=== PATIENT | male | born 1955 | race Two or more races ===

== ENCOUNTER 2017-11-06 10:58 | Observation (INO) | payer MEDICAID ==
--- NOTE | 2017-11-06 11:51 | ER Document Report ---
ED Medical Screen (RME) - General Chief Complaint: Facial Droop Stated Complaint: TOOTH PAIN Time Seen by Provider: 11/06/17 11:27 Mode of Arrival: Ambulatory Information source: Patient Notes: Patient presents complaining of dental pain to the left upper jaw over the past 2 weeks. Patient states that he did have some pain up into the left side of his head as well. Patient took leftover antibiotics in attempt to treat his symptoms. Patient states that his dental infection is causing his face to twist up. Upon inspection patient with a right-sided facial drooping. Patient with good strength to bilateral upper and lower extremities. Patient states that he does have difficulty in finding his words as well as difficulty with speech enunciation for the past 2 weeks. TRAVEL OUTSIDE OF THE [place] IN LAST 30 DAYS: No - Related Data Allergies/Adverse Reactions: No Known Allergies Allergy (Verified 08/04/15 12:20) Past Medical History - Past Medical History Cardiac Medical History: Reports: Hx Heart Attack Endocrine Medical History: Reports: Hx Diabetes Mellitus Type 1 Past Surgical History: Reports: Hx Cardiac Catheterization - with stents, Hx Cardiac Surgery - 3 stents - Immunizations Hx Diphtheria, Pertussis, Tetanus Vaccination: Yes Physical Exam - Vital signs Vitals: Temp Pulse Resp BP Pulse Ox 98.4 F 88 20 173/100 H 95 11/06/17 11:04 11/06/17 11:04 11/06/17 11:04 11/06/17 11:04 11/06/17 11:04 - Neurological Cranial nerves: Facial palsy - Right-sided Course - Vital Signs Vital signs: Temp Pulse Resp BP Pulse Ox 98.4 F 88 20 173/100 H 95 11/06/17 11:04 11/06/17 11:04 11/06/17 11:04 11/06/17 11:04 11/06/17 11:04
[2017-11-06 12:19] LABS: INTERNATIONAL RATION (INR) 0.94
[2017-11-06 12:20] LABS: PARTIAL THROMBOPLASTIN TIME 28.1 SEC (23.5-35.8)
[2017-11-06 12:26] LABS: ABSOLUTE EOSINOPHILS # (AUTO) 0.3 10^3/uL (0.0-0.6); ABSOLUTE LYMPHOCYTES (AUTO) 2.7 10^3/uL (0.5-4.7); ABSOLUTE MONOCYTES (AUTO) 0.6 10^3/uL (0.1-1.4); ABSOLUTE NEUT (AUTO) 5.1 10^3/uL (1.7-8.2); BASOPHILS % (AUTO) 0.5 % (0-2); EOSINOPHILS % (AUTO) 3.5 % (0-6); HEMATOCRIT 45.5 % (37.9-51.0); MEAN CORPUSCULAR HEMOGLOBIN 27.9 pg (27.0-33.4); MEAN CORPUSCULAR HGB CONC 32.9 g/dL (32.0-36.0); MEAN CORPUSCULAR VOLUME 85 fl (80-97); MONOCYTES % (AUTO) 6.7 % (3-13); PLATELET COUNT 179 10^3/uL (150-450); RED BLOOD COUNT 5.36 10^6/uL (4.35-5.55); SEGMENTED NEUTROPHILS % (AUTO) 58.3 % (42-78); TOTAL CELLS COUNTED % (AUTO) 100 %; WHITE BLOOD COUNT 8.7 10^3/uL (4.0-10.5)
--- NOTE | 2017-11-06 12:28 | RADIOLOGY REPORT (SQ) ---
EXAM DESCRIPTION: CT HEAD WITHOUT COMPLETED DATE/TIME: 11/06/2017 12:18 pm REASON FOR STUDY: facial droop, diff with speech COMPARISON: None. TECHNIQUE: Axial images acquired through the brain without intravenous contrast. Images reviewed wi th bone, brain and subdural windows. Additional sagittal and coronal reconstructions were generated. Images stored on PACS. All CT scanners at this facility use dose modulation, iterative reconstruction, and/or weight based d osing when appropriate to reduce radiation dose to as low as reasonably achievable (ALARA). [facility]: Dose Right [facility]: CareDose [facility]: Dose Right [facility]: Teradose 4D [facility]: Smart Intellecap RADIATION DOSE: CT Rad equipment meets quality standard of care and radiation dose reduction techniq ues were employed. CTDIvol: 53.2 mGy. DLP: 991 mGy-cm. mGy. LIMITATIONS: None. FINDINGS: VENTRICLES: Normal size and contour. CEREBRUM: No masses. No hemorrhage. No midline shift. No evidence for acute infarction. Normal gra y/white matter differentiation. No areas of low density in the white matter. CEREBELLUM: No masses. No hemorrhage. No alteration of density. No evidence for acute infarction. EXTRAAXIAL SPACES: No fluid collections. No masses. ORBITS AND GLOBE: No intra- or extraconal masses. Normal contour of globe without masses. CALVARIUM: No fracture. PARANASAL SINUSES: No fluid or mucosal thickening. SOFT TISSUES: No mass or hematoma. OTHER: No other significant finding. IMPRESSION: NORMAL BRAIN CT WITHOUT CONTRAST. EVIDENCE OF ACUTE STROKE: NO. COMMENT: Quality ID # [id number]: Final reports with documentation of one or more dose reduction techniques (e.g., Automated exposure control, adjustment of the mA and/or kV according to patient size, use of iterative reconstruction technique) TECHNICAL DOCUMENTATION: JOB ID: [id number] [email or web address]- All Rights Reserved Reading location - IP/workstation name: [email or web address]
--- NOTE | 2017-11-06 12:37 | RADIOLOGY REPORT (SQ) ---
EXAM DESCRIPTION: CHEST SINGLE VIEW COMPLETED DATE/TIME: 11/06/2017 12:28 pm REASON FOR STUDY: facial droop, diff with speech COMPARISON: 08/04/2015 EXAM PARAMETERS: NUMBER OF VIEWS: One view. TECHNIQUE: Single frontal radiographic view of the chest acquired. RADIATION DOSE: NA LIMITATIONS: None. FINDINGS: LUNGS AND PLEURA: No opacities, masses or pneumothorax. No pleural effusion. MEDIASTINUM AND HILAR STRUCTURES: No masses. Contour normal. HEART AND VASCULAR STRUCTURES: Heart normal in size. Normal vasculature. BONES: No acute findings. HARDWARE: None in the chest. OTHER: No other significant finding. IMPRESSION: NO ACUTE RADIOGRAPHIC FINDING IN THE CHEST. TECHNICAL DOCUMENTATION: JOB ID: [id number] [email or web address]- All Rights Reserved Reading location - IP/workstation name: [email or web address]
[2017-11-06 12:40] LABS: ALANINE AMINOTRANSFERASE 31 U/L (21-72); ALKALINE PHOSPHATASE 104 U/L (38-126); ANION GAP 11 (5-19); ASPARTATE AMINO TRANSFERASE 44 U/L (17-59); BILIRUBIN,DIRECT 0.3 mg/dL (0.0-0.4); BILIRUBIN,TOTAL 0.5 mg/dL (0.2-1.3); BLOOD UREA NITROGEN 23 mg/dL (7-20); CALCIUM 9.5 mg/dL (8.4-10.2); CARBON DIOXIDE 27 mmol/L (22-30); CHLORIDE 109 mmol/L (98-107); CREATINE KINASE 1039 U/L (55-170); GLUCOSE 85 mg/dL (75-110); POTASSIUM 4.5 mmol/L (3.6-5.0); SODIUM 147.4 mmol/L (137-145); TOTAL PROTEIN 7.6 g/dL (6.3-8.2)
[2017-11-06 12:53] LABS: CREATINE KINASE MB 5.62 ng/mL (<4.55); TROPONIN I 0.021 ng/mL
[2017-11-06] MEDS ORDERED: BUPIVACAINE HCL 0.5 % INJ/PF 30 ML SDV INJ ONE (13:37)
--- NOTE | 2017-11-06 13:43 | EKG REPORT ---
SEVERITY:- BORDERLINE ECG - SINUS RHYTHM CONSIDER INFERIOR INFARCT : Confirmed by: Leandro Bui MD 06-Nov-2017 13:42:01
--- NOTE | 2017-11-06 14:18 | ER Document Report ---
ED General - General Chief Complaint: Facial Droop Stated Complaint: TOOTH PAIN Time Seen by Provider: 11/06/17 11:27 Mode of Arrival: Ambulatory Information source: Patient Notes: 62-year-old male presents with complaints of right facial droop left leg weakness chest pain and dental pain. Patient notes facial droop and dental pain that been ongoing now for a month. He notes the chest pain is on-and-off and happened approximately 1 hour prior to arrival. Patient is from [place], does not have a PCP here TRAVEL OUTSIDE OF THE U[place] IN LAST 30 DAYS: No - HPI Onset: Other Onset/Duration: Intermittent, Gone Quality of pain: Sharp - Patient has sharp dental pain but no chest pain at this time Severity: Mild Pain Level: 1 Associated symptoms: Chest pain, Other Exacerbated by: Denies Relieved by: Denies Similar symptoms previously: Yes Recently seen / treated by doctor: Yes - Related Data Allergies/Adverse Reactions: No Known Allergies Allergy (Verified 08/04/15 12:20) Past Medical History - General Information source: Patient - Social History Smoking Status: Current Every Day Smoker Cigarette use (# per day): Yes Chew tobacco use (# tins/day): No Smoking Education Provided: No Frequency of alcohol use: None Drug Abuse: None Family History: CAD Patient has suicidal ideation: No Patient has homicidal ideation: No - Past Medical History Cardiac Medical History: Reports: Hx Heart Attack, Hx Hypertension Endocrine Medical History: Reports: Hx Diabetes Mellitus Type 1 Renal/ Medical History: Denies: Hx Peritoneal Dialysis Past Surgical History: Reports: Hx Cardiac Catheterization - with stents, Hx Cardiac Surgery - 3 stents - Immunizations Hx Diphtheria, Pertussis, Tetanus Vaccination: Yes Review of Systems - Review of Systems Notes: REVIEW OF SYSTEMS: CONSTITUTIONAL : Denies fever, chills, or sweats. Denies recent illness. EENT: Admits to dental pain CARDIOVASCULAR: Admits to chest pain RESPIRATORY: Denies cough, cold, or chest congestion. Denies shortness of breath, difficulty breathing, or wheezing. GASTROINTESTINAL: Denies abdominal pain or distention. Denies nausea, vomiting , or diarrhea. Denies blood in vomitus, stools, or per rectum. Denies black, tarry stools. Denies constipation. GENITOURINARY: Denies difficulty urinating, painful urination, burning, frequency, blood in urine, or discharge. MUSCULOSKELETAL: Denies back or neck pain or stiffness. Denies joint pain or swelling. SKIN: Denies rash, lesions or sores. HEMATOLOGIC : Denies easy bruising or bleeding. LYMPHATIC: Denies swollen, enlarged glands. NEUROLOGICAL: Admits to right facial droop PSYCHIATRIC: Denies anxiety or stress. Denies depression, suicidal ideation, or homicidal ideation. ALL OTHER SYSTEMS REVIEWED AND NEGATIVE. Dictation was performed using [employer] voice recognition software PHYSICAL EXAMINATION: GENERAL: Well-appearing, well-nourished and in no acute distress. HEAD: Atraumatic, normocephalic. EYES: Pupils equal round and reactive to light, extraocular movements intact, sclera anicteric, conjunctiva are normal. ENT: Nares patent, oropharynx clear without exudates. Moist mucous membranes. Left tooth number 12 is noted to be loose and tender NECK: Normal range of motion, supple without lymphadenopathy LUNGS: Breath sounds clear to auscultation bilaterally and equal. No wheezes rales or rhonchi. HEART: Regular rate and rhythm without murmurs ABDOMEN: Soft, nontender, nondistended abdomen. No guarding, no rebound. No masses appreciated. Musculoskeletal: Normal range of motion, no pitting or edema. No cyanosis. NEUROLOGICAL: Cranial nerves grossly intact. Right facial droop noted left heel to santoro was noted to be an appropriate, concern for cerebellar dysfunction PSYCH: Normal mood, normal affect. SKIN: Warm, Dry, normal turgor, no rashes or lesions noted. Physical Exam - Vital signs Vitals: Temp Pulse Resp BP Pulse Ox 98.4 F 88 20 173/100 H 95 11/06/17 11:04 11/06/17 11:04 11/06/17 11:04 11/06/17 11:04 11/06/17 11:04 Course - Re-evaluation Re-evalutation: 11/06/17 15:[address] head negative no acute abnormality, my concern is that the patient had a CVA and his ck ckmb were elvated but trop was negative. Dental block was performed with complete resolution of patient's pain on the left - Vital Signs Vital signs: Temp Pulse Resp BP Pulse Ox 98.4 F 64 13 162/91 H 95 11/06/17 11:04 11/06/17 12:00 11/06/17 14:01 11/06/17 14:01 11/06/17 14:01 - Laboratory Result Diagrams: 11/06/17 12:09 11/06/17 12:09 Laboratory results interpreted by me: 11/06/17 11/06/17 11/06/17 12:09 12:09 12:09 RDW 15.0 H Sodium 147.4 H Chloride 109 H BUN 23 H Creatinine 1.48 H Est GFR ( Amer) 58 L Est GFR (Non-Af Amer) 48 L Creatine Kinase 1039 H CK-MB (CK-2) 5.62 H - Diagnostic Test Radiology reviewed: Image reviewed - CT head without contrast negative, Reports reviewed Procedures - Additional Procedures dental block Time performed: 15:00 - using 10cc of lido without ep compelte nerve block of the inferior orbital left Discharge - Discharge Clinical Impression: Facial droop, Pain, dental Chest pain Qualifiers: Chest pain type: unspecified Qualified Code(s): R07.9 - Chest pain, unspecified Condition: Stable Disposition: ADMITTED OBSERVATION Admitting Provider: Hospitalist Unit Admitted: Telemetry
[2017-11-06] MEDS ORDERED: OXYCODONE-ACETAMINOPHEN 5-325 MG TABLET PO PRN (14:54)
[2017-11-06] MEDS ORDERED: DEXTROSE 50%-WATER 25 GM/50 ML DISP.SYRIN IV PRN ×4 (14:54→15:13)
[2017-11-06] MEDS ORDERED: ONDANSETRON 4 MG TAB.RAPDIS PO PRN (14:54)
[2017-11-06] MEDS ORDERED: GLUCAGON,HUMAN RECOMB 1 MG INJ SUBCUT PRN (14:54)
[2017-11-06] MEDS ORDERED: DEXTROSE 40% GEL 15 GM TUBE PO PRN ×4 (14:54→15:13)
[2017-11-06] MEDS ORDERED: GLUCAGON,HUMAN RECOMB 1 MG INJ IM PRN (15:13)
[2017-11-06] MEDS: NORMAL SALINE 1000 ML 1,000 ML IV PRN ×2 (15:23→19:26)
--- NOTE | 2017-11-06 15:38 | PDOC H&P ---
History of Present Illness Admission Date/PCP: 11/06/17 14:23 NO LOCALMD Patient complains of: Facial pain History of Present Illness: The patient is a very pleasant 62-year-old gentleman who spends 3 months out of the year in the [place] area visiting his son. He resides in [place] and is followed closely by his primary care physician and [employer] at [employer]. His past medical history is significant for coronary artery disease status post stent placements in the past. He has insulin requiring diabetes mellitus as well as hypertension and hyperlipidemia. Unfortunately the patient continues to smoke. The patient is down in [place] visiting his son. He states that he has been worsening over the past month. Approximately 1 month ago the patient started developing shaking tremors. At about the same time he started developing what he thought was a toothache. He has pain in the left side of his face. This initially was in the jaw but over the past month is worsened and now radiates up into his head and his eye and down into his throat. About 2 weeks ago the patient developed left-sided facial droop. He was unable to make his jaw work properly and he has had a difficult time chewing any food. He is not eating much because it is so difficult to eat or open his mouth. He then began to develop some left-sided blurry vision as well. Also for the past couple of weeks he has had issues with worsening chest pain. He states he will have episodes of chest pain usually when he is walking around that are quite brief. They do resolve with rest. He has had no increased shortness of breath. No diaphoresis. No nausea or vomiting. He states that he just has not been paying much attention to it up until the past couple of days when it seems to have worsened. Today the pain in his jaw became quite severe and he decided to present to the emergency room for further evaluation and treatment. Workup in the hospital has been fairly unrevealing. He had a CT of the brain which was unremarkable. Chest x-ray was normal. He does not have a white count or fever. He does have an elevated creatinine above his baseline from when he was here in the emergency room in 2016. He has mild hypernatremia as well. Past Medical History Cardiac Medical History: Reports: Myocardial Infarction, Hypertension Pulmonary Medical History: Reports: None EENT Medical History: Reports: None Neurological Medical History: Reports: None, Other - Although recently he has developed shaking tremor. This seems to be worsen Denies: Seizures Endocrine Medical History: Reports: Diabetes Mellitus Type 1 Renal/ Medical History: Reports: None Malignancy Medical History: Reports: None GI Medical History: Reports: None Musculoskeltal Medical History: Reports: None Skin Medical History: Reports: None Psychiatric Medical History: Reports: Depression, Tobacco Dependency Denies: Alcohol Dependency, Substance Abuse Traumatic Medical History: Reports: None Hematology: Reports: None Infectious Medical History: Reports: None Past Surgical History Past Surgical History: Reports: Cardiac Catheterization - with stents Social History Information Source: Patient Lives with: Family - The patient lives with his son right now in [facility]. In [place] he shares an apartment with his mother. Smoking Status: Current Every Day Smoker Cigarettes Packs Per Day: 1 - He states he smokes 1 pack of cigarettes a week Frequency of Alcohol Use: Social Last Alcohol Use: 11/03/17 Hx Recreational Drug Use: Yes Drugs: Marijuana Hx Prescription Drug Abuse: No Family History Family History: CAD Parental Family History Reviewed: Yes Children Family History Reviewed: Yes Sibling(s) Family History Reviewed.: Yes Medication/Allergy Home Medications: Aspirin [Aspirin EC] 81 mg PO DAILY 11/06/17 Enalapril Maleate [Vasotec 5 mg Tablet] 5 mg PO DAILY 11/06/17 Hum Insulin NPH/Reg Insulin Hm [Novolin 70-30 100 Unit/ml Vial] 25 units SQ DAILY 11/06/17 Insulin Glargine,Hum.rec.anlog [Lantus Insulin 100 Unit/1 ml 10 ml] 30 units SQ QHS 11/06/17 Metoprolol Tartrate [Lopressor 50 mg Tablet] 50 mg PO Q12 11/06/17 Prasugrel HCl [Effient 10 mg Tablet] 10 mg PO DAILY 11/06/17 Rosuvastatin Calcium [Crestor 20 mg Tablet] 20 mg PO QHS 11/06/17 Allergies/Adverse Reactions: No Known Allergies Allergy (Verified 08/04/15 12:20) Review of Systems Constitutional: PRESENT: fatigue, other - He is developed a significant tremor over the past month Eyes: PRESENT: visual disturbances - Blurry vision in his left eye Ears: ABSENT: hearing changes Nose, Mouth, and Throat: PRESENT: headache(s), other - The patient has significant jaw pain. He believes it is coming from a tooth. It radiates up into his thigh and left side of his temporal area. It also radiates down into his jaw and neck. Cardiovascular: PRESENT: chest pain - That is relieved with rest.. ABSENT: dyspnea on exertion, edema, orthropnea, palpitations Respiratory: ABSENT: cough, hemoptysis Gastrointestinal: ABSENT: abdominal pain, constipation, diarrhea, hematemesis, hematochezia, nausea, vomiting Genitourinary: ABSENT: dysuria, hematuria Musculoskeletal: PRESENT: other - The patient states he has been falling frequently over the past week Integumentary: ABSENT: rash, wounds Neurological: PRESENT: focal weakness - Mild left hemiparesis, frequent falls, lack of coordination, tremor(s), weakness, other - He has blurred vision in his left eye.. ABSENT: syncope Psychiatric: PRESENT: anxiety. ABSENT: depression, hallucinations, homidical ideation, suicidal ideation Endocrine: ABSENT: cold intolerance, heat intolerance, polydipsia, polyuria Hematologic/Lymphatic: ABSENT: easy bleeding, easy bruising Physical Exam Vital Signs: Temp Pulse Resp BP Pulse Ox 98.4 F 64 13 162/91 H 95 11/06/17 11:04 11/06/17 12:00 11/06/17 14:01 11/06/17 14:01 11/06/17 14:01 General appearance: PRESENT: no acute distress, well-developed, well-nourished, other - The patient is somewhat anxious. Head exam: PRESENT: other - The patient was significant left-sided facial droop. Eye exam: ABSENT: EOMI - The patient cannot complete his exam due to pain in his left eye. He seems to have difficulty with the left eye looking to the right laterally, PERRLA - Left pupil does not react to light. Ear exam: PRESENT: normal external ear exam Mouth exam: PRESENT: moist, tongue midline Neck exam: ABSENT: carotid bruit, JVD, lymphadenopathy, thyromegaly Respiratory exam: PRESENT: clear to auscultation zohra, decreased breath sounds - He is diminished in the lower bases bilaterally. ABSENT: rales, rhonchi, wheezes Cardiovascular exam: PRESENT: RRR. ABSENT: diastolic murmur, rubs, systolic murmur Pulses: PRESENT: normal dorsalis pedis pul Vascular exam: PRESENT: normal capillary refill GI/Abdominal exam: PRESENT: normal bowel sounds, soft. ABSENT: distended, guarding, mass, organolmegaly, rebound, tenderness Rectal exam: PRESENT: deferred Extremities exam: PRESENT: full ROM. ABSENT: calf tenderness, clubbing, pedal edema Neurological exam: PRESENT: alert, awake, oriented to person, oriented to time, oriented to situation, other - Mild left hemiparesis. The patient also has shaking spells in all 4 of his extremities. This appears to be a fairly strong tremor that waxes and wanes. ABSENT: CN II-XII grossly intact - The patient's left eye will not track to the right laterally. Left pupil is not reactive to light. Sensation is decreased on the left side of the face at all levels. Psychiatric exam: PRESENT: anxious Skin exam: PRESENT: dry, intact, warm. ABSENT: cyanosis, rash Results Impressions: Chest X-Ray 11/06/17 11:49 IMPRESSION: NO ACUTE RADIOGRAPHIC FINDING IN THE CHEST. Head CT 11/06/17 11:49 IMPRESSION: NORMAL BRAIN CT WITHOUT CONTRAST. EVIDENCE OF ACUTE STROKE: NO. Assessment & Plan - Diagnosis (1) Facial pain Is this a current diagnosis for this admission?: Yes Plan: There is been seen diabetes mellitus the patient has facial pain with neurologic deficits. This would seem most consistent with an acute CVA the patient felt like he had an abscessed tooth however I am not seeing any evidence of infection. The patient was given bupivacaine injection by the ER physician and currently his pain is stable. I do not believe at this point he needs any antibiotic therapy. We are going to obtain an MRI of the brain for further evaluation. I did speak to the radiologist. If we feel like after we get this test that he may have an underlying abscess we could consider a contrasted CT of the head and neck. We will hold off on that for now. (2) Chest pain Is this a current diagnosis for this admission?: Yes Plan: The patient does have significant history of cardiac issues. He will continue his home regimen of medications. We will trend his serial troponins overnight and tentatively schedule a stress test in the morning. (3) Left hemiparesis Is this a current diagnosis for this admission?: Yes Plan: The patient has mild left hemiparesis as well as left-sided facial droop. He also has some blurriness to his vision on the left as well as some eye pain when he moves his eye muscles. This would be most consistent with a CVA. However I cannot rule out another process such as a mass lesion or significant abscess. We are going to get an MRI of the brain. He is already on a statin medication and aspirin. I will increase his daily aspirin to 325 mg for now. I also am going to increase his statin medication dose as well. I am going to get physical therapy, occupational therapy and speech therapy to evaluate the patient. (4) Acute renal failure Is this a current diagnosis for this admission?: Yes Plan: The patient states that he has not been able to use his jaw and he can no longer chew food. He has not been eating or drinking well. I believe the patient's acute renal failure is likely due to dehydration. I am going to place the patient on normal saline overnight. He will have a repeat chemistry panel drawn in the morning. (5) Coronary artery disease Is this a current diagnosis for this admission?: Yes Plan: He will continue his home regimen. I am going to increase his aspirin for now. (6) Diabetes mellitus Is this a current diagnosis for this admission?: Yes Plan: He will continue his home dose of Lantus. He also takes 7030 twice daily. I will hold this for now and simply cover the patient with sliding scale Humalog. I will obtain his hemoglobin A1c in the morning for risk stratification (7) Hypertension Is this a current diagnosis for this admission?: Yes Plan: Stable. He will continue his home regimen (8) Hyperlipidemia Is this a current diagnosis for this admission?: Yes Plan: Continue his statin medication. (9) Hypernatremia Is this a current diagnosis for this admission?: Yes Plan: Possibly due to dehydration. We will hydrate the patient overnight. (10) Tobacco dependence Is this a current diagnosis for this admission?: Yes Plan: We will place a nicotine patch on the patient. (11) Ambulatory dysfunction Is this a current diagnosis for this admission?: Yes Plan: The patient has had several falls over the past week or 2. We will get physical therapy to evaluate the patient. (12) Full code status Is this a current diagnosis for this admission?: Yes - Time Time Spent: 50 to 70 Minutes - Inpatient Certification Medical Necessity: Need For IV Fluids, Need for Neurological Checks - The patient will be placed in observation in the hospital. Hopefully his workup will be negative and he can be discharged home tomorrow. This can be revisited based on test results. At this point I expect his hospitalization to span less than 2 midnights., Other
[2017-11-06 16:06] LABS: INTERNATIONAL RATION (INR) 0.95; PROTHROMBIN TIME 13.2 SEC (11.4-15.4)
[2017-11-06 16:07] LABS: PARTIAL THROMBOPLASTIN TIME 30.3 SEC (23.5-35.8)
[2017-11-06 18:54] LABS: CREATINE KINASE MB 4.52 ng/mL (<4.55); TROPONIN I 0.023 ng/mL
[2017-11-06] MEDS: NICOTINE 21 MG/24 HR PATCH.TD24 TD SCH (19:19)
[2017-11-06] MEDS: MORPHINE SULFATE 10 MG/ML INJ IV PRN (19:22)
[2017-11-06] MEDS: ATORVASTATIN CALCIUM 40 MG TABLET PO SCH (21:31)
[2017-11-06] MEDS: METOPROLOL TARTRATE 50 MG TABLET PO SCH (21:31)
[2017-11-06] MEDS: OXYCODONE-ACETAMINOPHEN 5-325 MG TABLET PO PRN (21:32)
[2017-11-06] MEDS ORDERED: (PENDING PHARMACY ID) (Rosuvastatin Calcium [Crestor 20 Mg Tablet] 20 MG) PO SCH (22:00)
[2017-11-06] MEDS ORDERED: INSULIN GLARGINE,HUM.REC.ANLOG 1,000 UNIT/10 ML UNIT SUBCUT SCH (22:00)
[2017-11-06] MEDS ORDERED: ATORVASTATIN CALCIUM 40 MG TABLET PO SCH (22:00)
[2017-11-06 22:18] LABS: URINE AMPHETAMINES SCREEN NEGATIVE; URINE BARBITURATES SCREEN NEGATIVE; URINE BENZODIAZEPINES SCREEN NEGATIVE; URINE COCAINE SCREEN NEGATIVE; URINE METHADONE SCREEN NEGATIVE; URINE PHENCYCLIDINE SCREEN NEGATIVE
[2017-11-06 22:25] LABS: URINE MARIJUANA (THC) SCREEN UNCONFIRMED POSITIVE
[2017-11-07] MEDS: NORMAL SALINE 1000 ML 1,000 ML IV PRN (03:59)
[2017-11-07] MEDS: LANSOPRAZOLE 30 MG TAB.RAP.DR PO SCH (05:14)
[2017-11-07 06:26] LABS: ABSOLUTE BASOPHILS # (AUTO) 0.1 10^3/uL (0.0-0.2); ABSOLUTE EOSINOPHILS # (AUTO) 0.3 10^3/uL (0.0-0.6); ABSOLUTE LYMPHOCYTES (AUTO) 2.1 10^3/uL (0.5-4.7); ABSOLUTE MONOCYTES (AUTO) 0.5 10^3/uL (0.1-1.4); ABSOLUTE NEUT (AUTO) 4.7 10^3/uL (1.7-8.2); BASOPHILS % (AUTO) 0.7 % (0-2); EOSINOPHILS % (AUTO) 4.3 % (0-6); HEMATOCRIT 41.9 % (37.9-51.0); HEMOGLOBIN 13.8 g/dL (13.5-17.0); LYMPHOCYTES % (AUTO) 27.1 % (13-45); MEAN CORPUSCULAR HEMOGLOBIN 27.8 pg (27.0-33.4); MEAN CORPUSCULAR HGB CONC 32.9 g/dL (32.0-36.0); MEAN CORPUSCULAR VOLUME 85 fl (80-97); MONOCYTES % (AUTO) 6.4 % (3-13); PLATELET COUNT 153 10^3/uL (150-450); RED BLOOD COUNT 4.95 10^6/uL (4.35-5.55); RED CELL DISTRIBUTION WIDTH 15.4 % (11.5-14.0); SEGMENTED NEUTROPHILS % (AUTO) 61.5 % (42-78); TOTAL CELLS COUNTED % (AUTO) 100 %; WHITE BLOOD COUNT 7.6 10^3/uL (4.0-10.5)
[2017-11-07 06:45] LABS: ALANINE AMINOTRANSFERASE 31 U/L (21-72); ALKALINE PHOSPHATASE 84 U/L (38-126); ANION GAP 6 (5-19); ASPARTATE AMINO TRANSFERASE 34 U/L (17-59); BILIRUBIN,DIRECT 0.2 mg/dL (0.0-0.4); BILIRUBIN,TOTAL 0.5 mg/dL (0.2-1.3); BLOOD UREA NITROGEN 18 mg/dL (7-20); CALCIUM 8.3 mg/dL (8.4-10.2); CARBON DIOXIDE 24 mmol/L (22-30); CHLORIDE 110 mmol/L (98-107); CHOLESTEROL 139.07 mg/dL (0-200); CREATINE KINASE 793 U/L (55-170); GLUCOSE 167 mg/dL (75-110); PHOSPHORUS 2.3 mg/dL (2.5-4.5); POTASSIUM 4.1 mmol/L (3.6-5.0); SODIUM 140.1 mmol/L (137-145); TOTAL PROTEIN 5.9 g/dL (6.3-8.2); TRIGLYCERIDES 203 mg/dL (<150)
[2017-11-07 06:56] LABS: DIRECT LDL 70 mg/dL (<100)
[2017-11-07 07:00] LABS: CREATINE KINASE MB 4.11 ng/mL (<4.55); TROPONIN I 0.023 ng/mL
[2017-11-07 07:04] LABS: VLDL CHOLESTEROL 40.6 mg/dL (10-31)
--- NOTE | 2017-11-07 07:34 | EKG REPORT ---
SEVERITY:- ABNORMAL ECG - SINUS RHYTHM INFERIOR INFARCT, AGE INDETERMINATE : Confirmed by: Leandro Bui MD 07-Nov-2017 07:33:52
[2017-11-07] MEDS: OXYCODONE-ACETAMINOPHEN 5-325 MG TABLET PO PRN ×2 (08:42→21:16)
[2017-11-07] MEDS: INSULIN LISPRO 100 UNIT/ML 3 ML VIAL SUBCUT PRN ×3 (08:43→21:11)
[2017-11-07] MEDS ORDERED: ASPIRIN 81 MG TABLET, ENT COATED PO SCH (10:00)
[2017-11-07] MEDS: ASPIRIN 325 MG TABLET PO SCH (11:47)
[2017-11-07] MEDS: ENOXAPARIN SODIUM INJ 40 MG/0.4 ML DISP.SYRIN SUBCUT SCH (11:47)
[2017-11-07] MEDS: ENALAPRIL MALEATE 5 MG TABLET PO SCH (11:48)
[2017-11-07] MEDS: PRASUGREL HCL 10 MG TABLET PO SCH (11:48)
[2017-11-07] MEDS: METOPROLOL TARTRATE 50 MG TABLET PO SCH ×2 (11:51→21:12)
[2017-11-07] MEDS: DOCUSATE SODIUM 100 MG CAPSULE PO SCH (11:54)
[2017-11-07] MEDS ORDERED: REGADENOSON INJ 0.4 MG/5 ML DISP.SYRIN IV ONE (12:00)
[2017-11-07] MEDS: MORPHINE SULFATE 10 MG/ML INJ IV PRN (13:42)
--- NOTE | 2017-11-07 14:18 | DRAGON STRESS TEST REPORT ---
INTRAVENOUS LEXISCAN CARDIOLITE STRESS TEST USING SINGLE PHOTON EMMISION COMPUTERIZED TOMOGRAPHIC. DATE OF PROCEDURE: November 07, 2017, INDICATION : Chest pain CARDIAC RISK FACTORS: Diabetes, hypertension, dyslipidemia, tobacco abuse, CAD RESTING EKG: Sinus rhythm, abnormal Q waves noted inferiorly. No baseline ST T- wave changes noted STRESS EKG: No significant ST segment changes noted with LexiScan bolus REASON FOR TERMINATION: Protocol. PROCEDURE REPORT: Baseline heart rate 56 beats per minute with blood pressure of 162/89. Patient had no significant complaints. Patient was bolused with Lexiscan 0.4 mg intravenously followed by saline bolus. Heart rate at 2 minutes post bolus 111 with a blood pressure of 126/73. 3 minutes post bolus heart rate 92 with blood pressure of 184/86. No significant EKG changes were noted. Patient had no significant complaints during the procedure or postprocedure. Patient injected with Aminophyllin 75 mg at 3 minutes or later after Lexiscan bolus. CONCLUSIONS: Normal EKG and hemodynamic response to IV LexiScan. NUCLEAR DATA: At rest the patient was given 12.60 millicuries of technetium 99 sestamibi injected intravenously. As per protocol rest gated SPECT images were obtained. On day of stress test, the patient was given intravenous LexiScan at a dose of 0.4 mg in 5 mL intravenously, followed by flush with normal saline. Subsequently the stress dose of 37.6 millicuries of technetium 99 sestamibi was injected intravenously. As per protocol stress gated images were obtained. NUCLEAR INTERPRETATION: Both raw and processed data were used for interpretation. Visual, qualitative, computer-generated quantitative data was used. There was good myocardial uptake of technetium compound. Motion artifact and soft tissue attenuations were noted. Increased visceral uptake was noted. No definitive areas of transient perfusion defect noted, No definitive areas of fixed perfusion defect or scars noted. Borderline decreased uptake noted in the stress imaging in the distal inferolateral wall with SDS of 1 therefore felt to be not significant. EKG gated imaging showed LV EF at 40 %, rest and stress gated EF similar visually. T. I D. ratio was 1.14. Lung heart ratio noted to be within normal limits 0.40. No significant extracardiac and abnormal radiotracer activities were noted. RV free wall uptake was noted to be WNL. IMPRESSION: Also refer to comments under nuclear interpretation. Also test results needs to be interpreted in the context of pretest probability. 1. No definitive areas of transient perfusion defect noted. 2. There is no definitive scintigraphic evidence of myocardial infarction/scar. 3. EKG gated imaging shows left ventricular ejection fraction of approx. 40 %. 4. Clinical correlation requested as occasionally single vessel disease or balanced ischemia could be missed. In approximately 10% of the cases Lexiscan may not cause adequate vasodilatory stress. RECOMMENDATIONS: Aggressive risk factor modification and medical management. Further evaluation may be needed if continued symptoms or other high risk indicators are noted on clinical evaluation. Close cardiology follow-up is also recommended. Clinical correlation with echocardiogram derived ejection fraction. Inability to exercise by itself can lead to increased cardiovascular event risks. Consider cardiology consultation and or follow-up if clinically indicated. I am available for cardiology evaluation and consultation if requested by the small engine specialist, unless patient already has a cardiac tech. MELISSA
[2017-11-07] MEDS: NICOTINE 21 MG/24 HR PATCH.TD24 TD SCH (17:55)
--- NOTE | 2017-11-07 19:39 | PDOC PROGRESS REPORT ---
Subjective Progress Note for:: 11/07/17 Subjective:: Doing better. Still with good facial numbness. Denies chest pain, no shortness of breath or palpitations. Denies abdominal pain, nausea or vomiting. Reason For Visit: FACIAL PAIN WITH NEUROLOGIC DEFICITS Physical Exam Vital Signs: Temp Pulse Resp BP Pulse Ox 97.6 F 62 16 163/86 H 99 11/07/17 12:01 11/07/17 14:00 11/07/17 12:01 11/07/17 12:01 11/07/17 12:01 Intake & Output 11/06/17 11/07/17 11/08/17 06:59 06:59 06:59 Intake Total 1522 Output Total 300 Balance 1222 Weight 82.1 kg GEN: NAD, well-developed, well-nourished CV: RRR, NL S1S2 LUNGS: CTA bilaterally ABDOMEN Soft, NT, +BS EXTERMITIES: No e/c/c NEURO: Alert, oriented 3, mild left sided weakness Results Laboratory Results: 11/07/17 06:10 11/07/17 06:10 11/07/17 11/07/17 11/07/17 06:10 06:10 06:10 WBC 7.6 RBC 4.95 Hgb 13.8 Hct 41.9 MCV 85 MCH 27.8 MCHC 32.9 RDW 15.4 H Plt Count 153 Seg Neutrophils % 61.5 Lymphocytes % 27.1 Monocytes % 6.4 Eosinophils % 4.3 Basophils % 0.7 Absolute Neutrophils 4.7 Absolute Lymphocytes 2.1 Absolute Monocytes 0.5 Absolute Eosinophils 0.3 Absolute Basophils 0.1 Sodium 140.1 Potassium 4.1 Chloride 110 H Carbon Dioxide 24 Anion Gap 6 BUN 18 Creatinine 1.22 Est GFR ( Amer) > 60 Est GFR (Non-Af Amer) > 60 Glucose 167 H Calcium 8.3 L Phosphorus 2.3 L Magnesium 1.7 Total Bilirubin 0.5 AST 34 ALT 31 Alkaline Phosphatase 84 Total Protein 5.9 L Albumin 3.0 L Triglycerides 203 H Cholesterol 139.07 LDL Cholesterol Direct 70 VLDL Cholesterol 40.6 H HDL Cholesterol 32 L TSH 1.79 11/06/17 11/06/17 11/07/17 18:20 18:20 06:10 Creatine Kinase 896 H CK-MB (CK-2) 4.52 4.11 Troponin I 0.023 0.023 11/07/17 06:10 Creatine Kinase 793 H CK-MB (CK-2) Troponin I Impressions: Chest X-Ray 11/06/17 11:49 IMPRESSION: NO ACUTE RADIOGRAPHIC FINDING IN THE CHEST. Head CT 11/06/17 11:49 IMPRESSION: NORMAL BRAIN CT WITHOUT CONTRAST. EVIDENCE OF ACUTE STROKE: NO. Assessment & Plan - Plan Summary Plan Summary: (1) Facial pain Is this a current diagnosis for this admission?: Yes Plan: Doing better. We are going to obtain an MRI of the brain for further evaluation. Apparently per radiologist, if we feel like after we get this test that he may have an underlying abscess we could consider a contrasted CT of the head and neck. We will continue to hold off on that for now. (2) Chest pain Is this a current diagnosis for this admission?: Yes Plan: The patient does have significant history of cardiac issues. He will continue his home regimen of medications. He has ruled out for GA and stress Cardiolite to the unremarkable for GA. (3) Left hemiparesis Is this a current diagnosis for this admission?: Yes Plan: The patient has mild left hemiparesis as well as left-sided facial droop. We are getting an MRI of the brain. He is already on a statin medication. Physical therapy, occupational therapy and speech therapy as already ordered. (4) Acute renal failure Is this a current diagnosis for this admission?: Yes Plan: The patient states that he has not been able to use his jaw and he can no longer chew food. He has not been eating or drinking well. I agree that the patient's acute renal failure is likely due to dehydration. This is improving. He will have a repeat chemistry panel drawn in the morning. (5) Coronary artery disease Is this a current diagnosis for this admission?: Yes Plan: He will continue his home regimen. (6) Diabetes mellitus Is this a current diagnosis for this admission?: Yes Plan: He will continue his home dose of Lantus. He also takes 70/30 twice daily. We are holding this for now and simply cover the patient with sliding scale Humalog. Check hemoglobin A1c in the morning for risk stratification (7) Hypertension Is this a current diagnosis for this admission?: Yes Plan: Stable. He will continue his home regimen (8) Hyperlipidemia Is this a current diagnosis for this admission?: Yes Plan: Continue his statin medication. (9) Hypernatremia Is this a current diagnosis for this admission?: Yes Plan: Possibly due to dehydration. Improved. Follow-up Chem-7 in a.m. (10) Tobacco dependence Is this a current diagnosis for this admission?: Yes Plan: Smoking cessation counseling. We will continue nicotine patch. (11) Ambulatory dysfunction Is this a current diagnosis for this admission?: Yes Plan: The patient has had several falls over the past week or 2. Physical therapy evaluation.
[2017-11-07] MEDS: ATORVASTATIN CALCIUM 40 MG TABLET PO SCH (21:12)
[2017-11-07] MEDS ORDERED: INSULIN GLARGINE,HUM.REC.ANLOG 1,000 UNIT/10 ML UNIT SUBCUT SCH (22:00)
[2017-11-08] MEDS: LANSOPRAZOLE 30 MG TAB.RAP.DR PO SCH (05:04)
[2017-11-08] MEDS: TRAMADOL HCL 50 MG TABLET PO PRN ×2 (05:04→08:44)
[2017-11-08] MEDS: ASPIRIN 325 MG TABLET PO SCH (08:42)
[2017-11-08] MEDS: DOCUSATE SODIUM 100 MG CAPSULE PO SCH (08:42)
[2017-11-08] MEDS: ENOXAPARIN SODIUM INJ 40 MG/0.4 ML DISP.SYRIN SUBCUT SCH (08:43)
[2017-11-08] MEDS: METOPROLOL TARTRATE 50 MG TABLET PO SCH (08:43)
[2017-11-08] MEDS: PRASUGREL HCL 10 MG TABLET PO SCH (08:45)
[2017-11-08] MEDS: ENALAPRIL MALEATE 5 MG TABLET PO SCH (08:45)
[2017-11-08 10:59] LABS: ABSOLUTE EOSINOPHILS # (AUTO) 0.2 10^3/uL (0.0-0.6); ABSOLUTE LYMPHOCYTES (AUTO) 2.2 10^3/uL (0.5-4.7); ABSOLUTE MONOCYTES (AUTO) 0.4 10^3/uL (0.1-1.4); ABSOLUTE NEUT (AUTO) 3.8 10^3/uL (1.7-8.2); BASOPHILS % (AUTO) 0.7 % (0-2); EOSINOPHILS % (AUTO) 2.7 % (0-6); HEMATOCRIT 41.4 % (37.9-51.0); HEMOGLOBIN 13.6 g/dL (13.5-17.0); LYMPHOCYTES % (AUTO) 32.5 % (13-45); MEAN CORPUSCULAR HGB CONC 32.9 g/dL (32.0-36.0); MEAN CORPUSCULAR VOLUME 85 fl (80-97); MONOCYTES % (AUTO) 6.6 % (3-13); PLATELET COUNT 143 10^3/uL (150-450); RED BLOOD COUNT 4.86 10^6/uL (4.35-5.55); RED CELL DISTRIBUTION WIDTH 15.6 % (11.5-14.0); SEGMENTED NEUTROPHILS % (AUTO) 57.5 % (42-78); TOTAL CELLS COUNTED % (AUTO) 100 %; WHITE BLOOD COUNT 6.6 10^3/uL (4.0-10.5)
[2017-11-08 11:17] LABS: ANION GAP 6 (5-19); BLOOD UREA NITROGEN 20 mg/dL (7-20); CALCIUM 8.6 mg/dL (8.4-10.2); CARBON DIOXIDE 26 mmol/L (22-30); CHLORIDE 107 mmol/L (98-107); GLUCOSE 214 mg/dL (75-110); POTASSIUM 4.5 mmol/L (3.6-5.0); SODIUM 139.4 mmol/L (137-145)
--- NOTE | 2017-11-08 12:16 | RADIOLOGY REPORT (SQ) ---
EXAM DESCRIPTION: CTA HEAD COMPLETED DATE/TIME: 11/08/2017 11:44 am REASON FOR STUDY: Left facial pain, left sided weakness COMPARISON: None. TECHNIQUE: Post IV contrast scanning, thin section axial imaging through the brain to evaluate the a rterial structures. Source and MIP images are saved and reviewed on PACS. Advanced 3D imaging as volume-rendering, MIPs, SSD performed? yes All CT scanners at this facility use dose modulation, iterative reconstruction, and/or weight based d osing when appropriate to reduce radiation dose to as low as reasonably achievable (ALARA). [facility]: Dose Right [facility]: CareDose [facility]: Dose Right [facility]: Teradose 4D [facility]: [employer] CONTRAST TYPE AND DOSE: 70 mL Isovue 370- low osmolar. RENAL FUNCTION: BUN 18 creatinine 1.22. LIMITATIONS: None. FINDINGS: [place]: The anterior, middle, posterior cerebral arteries are all patent. No ev idence of aneurysm or focal stenosis. POSTERIOR CIRCULATION: The distal vertebral arteries are patent as is the basilar artery. No aneurysm . BRAIN: No gross enhancing lesions as visualized. BONES: Intact as visualized. SINUSES: No fluid or mucosal thickening. OTHER: No other significant finding. IMPRESSION: NO CTA EVIDENCE OF STENOSIS OR ANEURYSM OF THE [place]. TECHNICAL DOCUMENTATION: JOB ID: [id number] Quality ID # [id number]: Final reports with documentation of one or more dose reduction techniques (e.g., Au tomated exposure control, adjustment of the mA and/or kV according to patient size, use of iterative reconstruction technique) 2010 [employer]- All Rights Reserved Reading location - IP/workstation name: [email or web address]
--- NOTE | 2017-11-08 12:18 | RADIOLOGY REPORT (SQ) ---
EXAM DESCRIPTION: CTA NECK COMPLETED DATE/TIME: 11/08/2017 11:44 am REASON FOR STUDY: Left facial pain, left sided weakness COMPARISON: None. TECHNIQUE: Axial dynamic scanning technique with dynamic contrast enhancement through the extra-card scraper nial carotid and vertebral arteries. Multiplanar reconstruction. 3-D MIPS and Volume-rendered imag es acquired at the workstation and saved to PACS. Images are reviewed in soft tissue, bone, lung w indows. All CT scanners at this facility use dose modulation, iterative reconstruction, and/or weight based d osing when appropriate to reduce radiation dose to as low as reasonably achievable (ALARA). [facility]: Dose Right [facility]: CareDose [facility]: Dose Right [facility]: Teradose 4D [facility]: [facility] CONTRAST TYPE AND DOSE: contrast/concentration: Isovue 370.00 mg/ml; Total Contrast Delivered: 70.0 ml; Total Saline Delivered: 75.0 ml RENAL FUNCTION: BUN 18 creatinine 1.22. LIMITATIONS: None. FINDINGS: AORTIC ARCH: Normal three-vessel origin. Bilateral subclavian arteries are patent. No d issection. RIGHT CAROTIDS: Mild partially calcified plaque in the carotid bulb and proximal internal carotid art jose luis. Patent common, internal and external carotid arteries without suggestion of significant stenosi s or irregular plaque. No dissection. RIGHT VERTEBRAL: Patent. No dissection. LEFT CAROTIDS: Mild partially calcified plaque in the carotid bulb and proximal internal carotid kathryn ry. Patent common, internal and external carotid arteries without suggestion of significant stenosis or irregular plaque. No dissection. LEFT VERTEBRAL: Patent. No dissection. OTHER: No other significant finding. OTHER: 3-D reconstructions confirm findings. IMPRESSION: MILD ATHEROSCLEROSIS. NO SIGNIFICANT STENOSIS. COMMENT: Quality ID #[id number]: Measurements of distal internal carotid diameter were used as the denomina tor for stenosis measurement. TECHNICAL DOCUMENTATION: JOB ID: [id number] Quality ID # 436: Final reports with documentation of one or more dose reduction techniques (e.g., Au tomated exposure control, adjustment of the mA and/or kV according to patient size, use of iterative reconstruction technique) 2010 [employer]- All Rights Reserved Reading location - IP/workstation name: [email or web address]
[2017-11-08] MEDS ORDERED: AMOXICILLIN TR/POT CLAVULANATE 500-125 MG TAB PO SCH (14:00)
--- NOTE | 2017-11-08 14:51 | PDOC DISCHARGE SUMMARY ---
General - Admit/Disc Date/PCP Admission Date/Primary Care Provider: 11/06/17 14:23 NO LOCALMD Discharge Date: 11/08/17 - Discharge Diagnosis (1) Acute renal failure Is this a current diagnosis for this admission?: Yes (3) Diabetes mellitus Is this a current diagnosis for this admission?: Yes (4) Facial pain Is this a current diagnosis for this admission?: Yes (5) Hypertension Is this a current diagnosis for this admission?: Yes (7) Tobacco dependence Is this a current diagnosis for this admission?: Yes - Additional Information Prescriptions: Amox Tr/Potassium Clavulanate [Augmentin 875-125 mg Tablet] 1 tab PO BID #20 tablet Tramadol HCl [Ultram 50 mg Tablet] 50 mg PO Q6HP PRN #30 tablet PRN Reason: Home Medications: Aspirin [Aspirin EC] 81 mg PO DAILY 11/06/17 Enalapril Maleate [Vasotec 5 mg Tablet] 5 mg PO DAILY 11/06/17 Hum Insulin NPH/Reg Insulin Hm [Novolin 70-30 100 Unit/ml Vial] 25 units SQ DAILY 11/06/17 Insulin Glargine,Hum.rec.anlog [Lantus Insulin 100 Unit/1 ml 10 ml] 30 units SQ QHS 11/06/17 Metoprolol Tartrate [Lopressor 50 mg Tablet] 50 mg PO Q12 11/06/17 Prasugrel HCl [Effient 10 mg Tablet] 10 mg PO DAILY 11/06/17 Rosuvastatin Calcium [Crestor 20 mg Tablet] 20 mg PO QHS 11/06/17 Amox Tr/Potassium Clavulanate [Augmentin 875-125 mg Tablet] 1 tab PO BID #20 tablet 11/08/17 Tramadol HCl [Ultram 50 mg Tablet] 50 mg PO Q6HP PRN #30 tablet 11/08/17 History of Present Illness History of Present Illness: NARINDER TERRELL is a 62 year old male history of CAD, diabetes mellitus, who presented to the ED with left facial pain and concern for left-sided weakness. Patient evaluation significant for negative head CT. Hospital Course Hospital Course: Patient was admitted to the hospitalist service. He was found to have acute kidney injury thought secondary to poor p.o. intake. He was treated with IV fluids and the MARCIO resolved. MRI was ordered, but radiologist could not do because there was concern about the type of stent he had on his femoral artery. Requested records from [place] was not very revealing of the type of stent. Patient had follow-up CTA with contrast of the head and neck, and these were negative. No abscess or sinusitis identified. His facial pain improved with pain management. He had no fever or chills, no leukocytosis. However examination of his mouth revealed dental caries/poor dentition. He was started on Augmentin for possible tooth infection. There was also concern that patient had chest pain by admission. He had stress Cardiolite done that was negative for a possible ischemia. He denies chest pain to me at this time. Patient doing better at this time. His left-sided weakness completely resolved. Presenting symptoms concerning for possible TIA. He is being discharged in stable condition. He is already on aspirin and Effient. He is to continue these. He is to follow-up with his primary care physician within 1 week. He is also advised to follow-up with a dentist. If there evaluation is unrevealing, PCP should consider referral to ENT or other appropriate specialists as may be indicated. Patient also extensively counseled about smoking cessation. Physical Exam Vital Signs: Temp Pulse Resp BP Pulse Ox 98.2 F 60 18 152/81 H 98 11/08/17 11:52 11/08/17 14:00 11/08/17 11:52 11/08/17 13:28 11/08/17 11:52 Intake & Output 11/07/17 11/08/17 11/09/17 06:59 06:59 06:59 Intake Total 1522 1490 400 Output Total 300 Balance 1222 1490 400 Weight 82.1 kg 81.4 kg GEN: NAD, well-developed, well-nourished HEENT: Tenderness left facial area, caries and poor dentition several left teeth CV: RRR, NL S1S2 LUNGS: CTA bilaterally ABDOMEN Soft, NT, +BS EXTERMITIES: No e/c/c NEURO: Alert, oriented 3, no weakness left side or otherwise Results Laboratory Results: 11/08/17 10:45 11/08/17 10:45 11/08/17 11/08/17 10:45 10:45 WBC 6.6 RBC 4.86 Hgb 13.6 Hct 41.4 MCV 85 MCH 28.0 MCHC 32.9 RDW 15.6 H Plt Count 143 L Seg Neutrophils % 57.5 Lymphocytes % 32.5 Monocytes % 6.6 Eosinophils % 2.7 Basophils % 0.7 Absolute Neutrophils 3.8 Absolute Lymphocytes 2.2 Absolute Monocytes 0.4 Absolute Eosinophils 0.2 Absolute Basophils 0.0 Sodium 139.4 Potassium 4.5 Chloride 107 Carbon Dioxide 26 Anion Gap 6 BUN 20 Creatinine 1.13 Est GFR ( Amer) > 60 Est GFR (Non-Af Amer) > 60 Glucose 214 H Calcium 8.6 11/06/17 11/06/17 11/07/17 18:20 18:20 06:10 Creatine Kinase 896 H CK-MB (CK-2) 4.52 4.11 Troponin I 0.023 0.023 11/07/17 06:10 Creatine Kinase 793 H CK-MB (CK-2) Troponin I Impressions: Chest X-Ray 11/06/17 11:49 IMPRESSION: NO ACUTE RADIOGRAPHIC FINDING IN THE CHEST. Head CT 11/06/17 11:49 IMPRESSION: NORMAL BRAIN CT WITHOUT CONTRAST. EVIDENCE OF ACUTE STROKE: NO. Head CTA 11/08/17 00:00 IMPRESSION: NO CTA EVIDENCE OF STENOSIS OR ANEURYSM OF THE [place]. Neck CTA 11/08/17 00:00 IMPRESSION: MILD ATHEROSCLEROSIS. NO SIGNIFICANT STENOSIS. Qualifiers - * PATIENT BEING DISCHARGED WITH ANY OF THE FOLLOWING DIAGNOSIS: Stroke Stroke Pt being discharged on Anti-thrombolytic therapy?: Yes Stroke Pt being discharged on Anti-coagulation therapy?: No Reason(s) for not prescribing Anti-coagulation therapy:: Not indicated Stroke Pt being discharged on Statins?: Yes
[2017-11-08 15:14] VITALS: BP 176/87
== END 2017-11-08 15:36 | disposition home or self-care (01) ==
LOC: ER 10:58 → EH 14:23 → 3W 16:58
PROVIDERS: ADMIT Internal Medicine; ATTEND Internal Medicine
DX: N17.9 Acute kidney failure, unspecified (principal); E10.9 Type 1 diabetes mellitus without complications; R51 Headache; I10 Essential (primary) hypertension; F17.210 Nicotine dependence, cigarettes, uncomplicated; I25.10 Atherosclerotic heart disease of native coronary artery without angina pectoris; K02.9 Dental caries, unspecified; R53.1 Weakness; R25.1 Tremor, unspecified; E78.5 Hyperlipidemia, unspecified; R07.9 Chest pain, unspecified; R68.84 Jaw pain; E87.0 Hyperosmolality and hypernatremia; G81.94 Hemiplegia, unspecified affecting left nondominant side; R29.6 Repeated falls; R27.9 Unspecified lack of coordination; R29.810 Facial weakness; H57.12 Ocular pain, left eye; F41.9 Anxiety disorder, unspecified; R63.3 Feeding difficulties; I25.2 Old myocardial infarction; Z95.5 Presence of coronary angioplasty implant and graft; Z79.4 Long term (current) use of insulin; Z82.49 Family history of ischemic heart disease and other diseases of the circulatory system; Z79.899 Other long term (current) drug therapy
CPT/HCPCS: 93005 ×2; 99285; 96360; 96361; 36415 ×3; 87040; 82553 ×2; 82962 ×3; 82550 ×2; 83735; 84100; 84443; 85025 ×3; 85610; 85730; 80076; 80048 ×2; 80053; 84484 ×2; 80307; 83036; 80061; 93017; 71045; 78452; 70450; 70496; 70498; 93010 ×2; 92610; G0378 ×4; A9500; J2785; J3490 ×5; J1815 ×2; J2270 ×2; J1650 ×2; J7030 ×2; Q9969